=== PATIENT | male | born 1945 | race Caucasian/White ===

== ENCOUNTER 2019-10-04 17:39 | Emergency (ER) | payer OTHER ==
[2019-10-04 17:52] VITALS: BP 120/76; PULSE 70; TEMP 97.6; BMI 26.6
--- NOTE | 2019-10-04 18:42 | PDOC ---
History of Present Illness - General Chief Complaint: Pain Stated Complaint: ABDOMINAL PAIN History Source: Patient Exam Limitations: No Limitations Past History - Past Medical History Allergies/Adverse Reactions: Allergies Allergy/AdvReac Type Severity Reaction Status Date / Time No Known Allergies Allergy Verified 10/04/19 17:52 Home Medications: Ambulatory Orders Polyethylene Glycol 3350 [Miralax (For Bowel Prep) -] 17 gm PO DAILY #1 bottle 10/04/19 Cardiac Disorders: Yes (pacemaker) COPD: No - Psycho Social/Smoking Cessation Hx Smoking History: Never smoked Have you smoked in the past 12 months: No Information on smoking cessation initiated: No Hx Alcohol Use: No Drug/Substance Use Hx: No *Physical Exam - Vital Signs Last Vital Signs Temp Pulse Resp BP Pulse Ox 97.6 F 70 16 120/76 100 10/04/19 17:50 10/04/19 17:50 10/04/19 17:50 10/04/19 17:50 10/04/19 17:50 ED Treatment Course - LABORATORY CBC & Chemistry Diagram: 10/04/19 19:00 10/04/19 19:00 Discharge - Discharge Information Problems reviewed: Yes Clinical Impression/Diagnosis: Nephrolithiasis Condition: Good Disposition: HOME - Admission No - Additional Discharge Information Prescriptions: Polyethylene Glycol 3350 [Miralax (For Bowel Prep) -] 17 gm PO DAILY #1 bottle - Follow up/Referral Referrals: John Zaman [Primary Care Provider] - Filippo Babb MD [Staff Physician] - - Patient Discharge Instructions Patient Printed Discharge Instructions: DI for Kidney Stones Additional Instructions: You were seen in the emergency department for the evaluation of your flank pain. You were found to have a kidney stone. These generally will pass on it own. I am giving you a referral to see a urologist within 1 week after discharge for follow up care and management. Please return to the emergency department if you have worsening symptoms or new concerning symptoms such as fevers, uncontrollable nausea and vomiting, and uncontrollable pain. Please use tylenol and motrin as prescribed for pain relief. Thank you. - Post Discharge Activity
[2019-10-04] MEDS ORDERED: ACETAMINOPHEN 1000 MG/100 ML VIAL (NON FORMULARY) IVPB ONE (18:43)
[2019-10-04] MEDS ORDERED: ONDANSETRON 4 MG/2 ML VIAL IVPUSH ONE (18:43)
[2019-10-04] MEDS ORDERED: ACETAMINOPHEN INJECTION 100 ML IVPB ONE (18:54)
[2019-10-04] MEDS ORDERED: ONDANSETRON 4 MG/2 ML VIAL ONE (18:55)
[2019-10-04 19:33] LABS: BASO % 0.2 % (0-2.0); EOS % 0.2 % (0-4.5); HEMATOCRIT 40.9 % (35.4-49); HEMOGLOBIN 13.6 GM/dL (11.7-16.9); LYMPH % 5.7 % (8-40); MCHC 33.3 g/dl (32.0-35.9); MEAN CELL VOLUME 83.9 fl (80-96); MEAN PLT VOLUME 8.4 fl (7.5-11.1); MONO % 4.9 % (3.8-10.2); PLATELET COUNT 198 K/MM3 (134-434); RBC 4.87 M/mm3 (4.00-5.60); RDW 14.2 % (11.9-15.9); WHITE BLOOD COUNT 12.1 K/mm3 (4.0-10.0)
[2019-10-04 19:40] LABS: EPI CELLS 1.2 /HPF (0-5/HPF); HYALINE CASTS 5 /lpf (0-8); URINE APPEARANCE CLEAR; URINE BACTERIA 3.1 /hpf (NEGATIVE); URINE BILIRUBIN NEGATIVE (NEGATIVE); URINE COLOR YELLOW; URINE GLUCOSE (UA) NEGATIVE (NEGATIVE); URINE KETONE TRACE (NEGATIVE); URINE LEUK ESTERASE NEGATIVE (NEGATIVE); URINE NITRITE NEGATIVE (NEGATIVE); URINE PROTEIN TRACE (NEGATIVE); URINE RBC 10 /hpf (0-4); URINE UROBILINOGEN 0.2 mg/dL (0.2-1.0); URINE WBC 6 /hpf (0-5)
[2019-10-04] MEDS ORDERED: CEFTRIAXONE 1 GM in DEXTROSE 5%-WATER - 100 ML IVPB ONE (19:48)
--- NOTE | 2019-10-04 19:48 | PDOC ---
Attending Attestation - Resident Resident Name: Silverio Duarte - ED Attending Attestation I have performed the following: I have examined & evaluated the patient, The case was reviewed & discussed with the resident, I agree w/resident's findings & plan - HPI HPI: 10/04/19 20:37 Pt suddenly developed left flank pain and lower abd pain. He thought that it was gas. He has no rashes and no dysuria. He has no medical problems and denies enlarged prostate - Physicial Exam PE: 10/04/19 20:43 Pt has normal neuro exam Clear lungs [id number] heart no murmurs noted by me Pt has no rashes and no fever Pt has minimal left flank pain. 10/05/19 00:24 Pt was treated with toradol, as he wsill had pain and he is feeling better. - Medical Decision Making 10/05/19 00:23 Labs normal Pt feeling better with hydration and pain meds. He will go home without abx, as he has clear UA>>only blood. Pt will be referred to utology. I will not send pt home with flomax, as he has a low normal BP.
[2019-10-04] MEDS ORDERED: SULFAMETHOXAZOLE/TRIMETHOPRIM 800MG/160MG D.S. TABLET PO ONE (19:49)
[2019-10-04 19:52] LABS: ALBUMIN 3.5 g/dl (3.4-5.0); BILIRUBIN,TOTAL 0.4 mg/dL (0.2-1); BLOOD UREA NITROGEN 23.7 mg/dL (7-18); CALCIUM 8.7 mg/dL (8.5-10.1); CREATININE 1.2 mg/dL (0.55-1.3); TOT PROT 6.2 g/dl (6.4-8.2)
[2019-10-04] MEDS ORDERED: CEFTRIAXONE 1 GM/50 ML BAG ONE (20:19)
[2019-10-04] MEDS ORDERED: SULFAMETHOXAZOLE/TRIMETHOPRIM 800MG/160MG D.S. TABLET ONE (20:19)
[2019-10-04] MEDS ORDERED: METHOCARBAMOL 500 MG TABLET PO ONE (21:10)
[2019-10-04] MEDS ORDERED: METHOCARBAMOL 500 MG TABLET ONE (21:43)
[2019-10-04] MEDS ORDERED: SODIUM CHLORIDE 0.9% 500 ML INFUS.BAG IV ONE (22:32)
[2019-10-04] MEDS ORDERED: TAMSULOSIN HCL 0.4 MG CAP PO ONE (22:32)
[2019-10-04] MEDS ORDERED: KETOROLAC TROMETHAMINE 30 MG/1 ML VIAL IVPUSH ONE (22:32)
[2019-10-04] MEDS ORDERED: KETOROLAC TROMETHAMINE 30 MG/1 ML VIAL ONE (22:53)
[2019-10-04] MEDS ORDERED: TAMSULOSIN HCL 0.4 MG CAP ONE (22:53)
== END 2019-10-05 00:36 | disposition home or self-care (01) ==
LOC: JER 17:39
PROC: 3E033NZ Introduction of Analgesics, Hypnotics, Sedatives into Peripheral Vein, Percutaneous Approach (ICD-10-PCS; principal; 2019-10-04)
PROC: 3E03329 Introduction of Other Anti-infective into Peripheral Vein, Percutaneous Approach (ICD-10-PCS; 2019-10-04)
PROC: 3E033GC Introduction of Other Therapeutic Substance into Peripheral Vein, Percutaneous Approach (ICD-10-PCS; 2019-10-04)
DX: N20.0 Calculus of kidney (principal); Z95.0 Presence of cardiac pacemaker
CPT/HCPCS: 36415; 74176-TC; 80053; 81003; 85025; 87086; 99282-25; J0131